=== PATIENT | male | born 1980 | race Caucasian/White ===

== ENCOUNTER 2017-07-07 17:38 | Emergency (ER) | payer MEDICAID ==
[2017-07-07] MEDS ORDERED: KETOROLAC 30 MG/ML VIAL IVP ONE (18:00)
[2017-07-07] MEDS ORDERED: 0.9 % SODIUM CHLORIDE 1,000 ML BAG IV ONE (18:00)
--- NOTE | 2017-07-07 18:06 | Emergency Department Record ---
History of Present Illness - General Chief Complaint: Abdominal Pain Stated Complaint: ABD PAIN Time Seen by Provider: 07/07/17 18:00 Source: Patient Mode of Arrival: Ambulatory Limitations: No limitations - History of Present Illness Initial Comments: 37 yo male presents with 8 months of left sided abdominal pain. The pain is constant. He underwent testing about 8 months ago in [place] and [place] without any answer. The pain is sharp and stays in the LLQ. He reports a normal colonoscopy during the work up. No fever. No bloody stools. Stools are sometimes loose. No dysuria. No surgery history in that area. Lives in [place] and PCP is in [place]. MD Complaint: Abdominal pain Onset/Timin -: Month(s) (8) Location: [facility] Radiation: Other Migration to: [facility] Severity: Moderate Quality: Sharp Consistency: Constant Improves With: Nothing Worsens With: Nothing Associated Symptoms: Denies other symptoms - Related Data Home Medications Medication Instructions Recorded Confirmed Last Taken Bisacodyl [Laxative] 5 mg PO ASDIR 07/07/17 07/07/17 07/07/17 Oxycodone HCl/Acetaminophen 1 tab PO Q6H PRN 07/07/17 07/07/17 07/07/17 [Percocet 5mg/325mg] Trazodone HCl 50 mg PO ASDIR 07/07/17 07/07/17 07/06/17 Venlafaxine HCl [Effexor] 75 mg PO DAILY 07/07/17 07/07/17 07/06/17 Previous Rx's Medication Instructions Recorded Polyethylene Glycol 3350 [Miralax] 1 packet PO DAILY #14 packet 07/07/17 Allergies Allergy/AdvReac Type Severity Reaction Status Date / Time No Known Drug Allergies Allergy Verified 07/07/17 17:48 Travel Screening - Travel/Exposure Within Last 30 Days Have you traveled within the last 30 days?: No Review of Systems Constitutional: Denies: Chills, Fever, Malaise, Weakness Eyes: Denies: Eye discharge, Eye pain, Vision change ENT: Denies: Congestion Respiratory: Denies: Cough, Dyspnea Cardiovascular: Denies: Chest pain, Syncope Endocrine: Denies: Fatigue, Polydipsia, Polyuria Gastrointestinal: Reports: Abdominal pain, Diarrhea (occasionally), Nausea. Denies: Constipation, Hematemesis, Hematochezia, Melena Genitourinary: Denies: Dysuria, Frequency, Hematuria Musculoskeletal: Denies: Arthralgia, Back pain, Myalgia Skin: Denies: Bruising, Change in color, Rash Neurological: Denies: Confusion, Headache, Numbness Psychiatric: Denies: Anxiety Hematological/Lymphatic: Denies: Blood Clots, Easy bleeding, Easy bruising Past Medical History - SOCIAL HISTORY Smoking Status: Current every day smoker Alcohol Use: Occasional Drug Use: Occasional Drug Use Detail:: Cocaine - RESPIRATORY Hx Respiratory Disorders: No - CARDIOVASCULAR Hx Cardio Disorders: No - NEURO Hx Neuro Disorders: No - GI Hx GI Disorders: No - Hx Genitourinary Disorders: No - ENDOCRINE Hx Endocrine Disorders: No - MUSCULOSKELETAL Hx Musculoskeletal Disorders: Yes Comment:: spinal stenosis - PSYCH Hx Psych Problems: Yes Hx Anxiety: Yes Hx Depression: Yes - HEMATOLOGY/ONCOLOGY Hx Hematology/Oncology Disorders: No Family Medical History Any Significant Family History?: No Physical Exam - General General Appearance: Alert, Oriented x3, Cooperative, No acute distress Limitations: No limitations - Head Head exam: Normal inspection - Eye Eye exam: Normal appearance, PERRL. negative: Conjunctival injection, Periorbital swelling - ENT ENT exam: Normal exam, Mucous membranes moist Ear exam: Normal external inspection Nasal Exam: Normal inspection Mouth exam: Normal external inspection - Neck Neck exam: Normal inspection, Full ROM. negative: Tenderness - Respiratory Respiratory exam: Normal lung sounds bilaterally. negative: Respiratory distress - Cardiovascular Cardiovascular Exam: Regular rate, Normal rhythm, Normal heart sounds - GI/Abdominal GI/Abdominal exam: Soft, Normal bowel sounds, Tenderness (mild in LLQ, soft). negative: Distended, Guarding, Hernia, Mass, Organomegaly, Rebound, Rigid - Rectal Rectal exam: Deferred - exam: Deferred - Extremities Extremities exam: Normal inspection, Full ROM, Normal capillary refill. negative: Tenderness - Back Back exam: Reports: Normal inspection, Full ROM. Denies: Muscle spasm, Rash noted, Tenderness - Neurological Neurological exam: Alert, Normal gait, Oriented X3 - Psychiatric Psychiatric exam: Normal affect, Normal mood - Skin Skin exam: Dry, Intact, Normal color, Warm Course Vital Signs 07/07/17 17:44 Temperature 98.9 F Pulse Rate 82 Respiratory 20 Rate Blood Pressure 117/87 Pulse Ox 97 - Reevaluation(s) Reevaluation #1: No prior imaging at [facility] Labs and CT ordered 07/07/17 18:06 Reevaluation #2: No acute changes on the CBC or CMP 07/07/17 19:29 Reevaluation #3: The labs were reviewed No acute changes today f Normal WBC count 07/07/17 20:[address] scan was read as abundant stool otherwise no acute process DC home to follow up with the PCP Medical Decision Making - Lab Data Result diagrams: 07/07/17 18:22 07/07/17 18:15 Disposition Disposition: Discharge Clinical Impression: Abdominal pain Qualifiers: Abdominal location: lower abdomen, unspecified Qualified Code(s): R10.30 - Lower abdominal pain, unspecified Disposition: Home, Self-Care Condition: (1) Good Instructions: Abdominal Pain (ED), Constipation (ED) Additional Instructions: Follow up with your doctor as scheduled Return if you have fever, vomiting or any new concerns Prescriptions: Polyethylene Glycol 3350 [Miralax] 1 packet PO DAILY #14 packet Forms: Patient Portal Access Time of Disposition: 21:06 Quality - Quality Measures Quality Measures: N/A - Blood Pressure Screening Does Patient Have Any of the Following: No Blood Pressure Classification: Pre-Hypertensive BP Reading Systolic Measurement: 117 Diastolic Measurement: 87 Screening for High Blood Pressure: < Pre-Hypertensive BP, F/U Documented > [ G8950] Pre-Hypertensive Follow-up Interventions: Referral to alternative/primary care provider.
[2017-07-07 18:36] LABS: BASO % 0.9 % (0-6); EOS % 6.3 % (0-6); HEMATOCRIT 36.2 % (42.0-52.0); HEMOGLOBIN 12.6 gm/dl (14.0-18.0); LYMPH % 38.1 % (16-45); MEAN CELL VOLUME 91.6 fl (81-97); MEAN CORPUSCULAR HGB CONC 34.8 g/dl (32-36); MEAN PLATELET VOLUME 9.6 fl (7.4-10.4); MONO % 8.7 % (0-9); PLATELET COUNT 313 K/uL (130-400); RED BLOOD COUNT 3.95 M/uL (4.40-5.70); WHITE BLOOD COUNT W/O DIFF 6.7 K/uL (4.2-12.2)
[2017-07-07 18:37] LABS: MEAN CORPUSCULAR HEMOGLOBIN 31.8 pg (27-33)
[2017-07-07 18:50] LABS: ALBUMIN 4.1 gm/dL (3.5-5.0); ALKALINE PHOSPHATASE 61 U/L (38-126); ALT/SGPT 35 U/L (21-72); ANION GAP 8.7 (7-16); AST/SGOT 18 U/L (17-59); BILIRUBIN,TOTAL 0.26 mg/dL (0.2-1.3); BLOOD UREA NITROGEN 13 mg/dL (9-20); CARBON DIOXIDE 27.3 mmol/L (22-30); CREATININE 0.7 mg/dL (0.66-1.25); EST GLOMERULAR FILTRATION RATE > 60 ml/min; GLUCOSE,RANDOM 113 mg/dL (70-110); LIPASE 47 U/L (23-300); TOTAL PROTEIN 6.5 gm/dL (6.3-8.2)
[2017-07-07] MEDS ORDERED: ONDANSETRON HCL IV 4 MG/2 ML VIAL IVP ONE (19:36)
[2017-07-07 19:44] LABS: URINE APPEARANCE CLEAR; URINE BILIRUBIN NEGATIVE (NEGATIVE); URINE BLOOD LARGE (NEGATIVE); URINE COLOR YELLOW; URINE GLUCOSE (UA) NEGATIVE (NEGATIVE); URINE KETONE NEGATIVE (NEGATIVE); URINE LEUKOCYTE ESTERASE NEGATIVE (NEGATIVE); URINE NITRITE NEGATIVE (NEGATIVE); URINE PROTEIN TRACE (NEGATIVE); URINE UROBILINOGEN 0.2 E.U./dL (0.20 - 1.00)
[2017-07-07 19:50] LABS: URINE EPITHELIAL CELLS NONE SEEN (FEW); URINE WBC NONE SEEN (0-2/hpf)
[2017-07-07 19:51] LABS: URINE BACTERIA NONE SEEN
--- NOTE | 2017-07-09 22:43 | CT SCAN REPORT ---
EXAM: CT SCAN ABDOMEN/PELVIS W CONTRAST HISTORY: LEFT-SIDED ABDOMINAL PAIN. TECHNIQUE: CT of the abdomen and pelvis was performed following the IV administration of 100 mL of Omnipaque-300 contrast. Oral contrast also utilized. COMPARISON: Prior CT from 11/30/07. FINDINGS: Limited evaluation of the lung bases is unremarkable. Osseous structures are grossly intact. The liver, spleen, adrenal glands, pancreas, and kidneys are unremarkable. The gallbladder is present. No evidence for bowel obstruction. Abundant stool in the colon. No free air or free fluid. No abdominal or pelvic adenopathy. There is a normal appendix. IMPRESSION: NEGATIVE FOR ACUTE INTRAABDOMINAL/PELVIC PROCESS. JOB NUMBER: [id number] MTDD
== END 2017-07-07 21:19 | disposition home or self-care (01) ==
LOC: ER 17:38
DX: R10.32 Left lower quadrant pain (principal); K59.00 Constipation, unspecified
CPT/HCPCS: 99284 ×2; 96374; 96375; 83690; 85025; 80076; 80048; 81001; 74177; Q9967; J1885; J2405; J7030

== ENCOUNTER 2018-08-06 15:13 | Emergency (ER) | payer MEDICAID ==
--- NOTE | 2018-08-06 16:03 | Emergency Department Record ---
History of Present Illness - General Chief Complaint: Abdominal Pain Stated Complaint: LT SIDE ABDOMINAL PAIN RADIATING TO GROIN Time Seen by Provider: 08/06/18 15:48 Source: Patient, RN notes reviewed Mode of Arrival: Ambulatory - History of Present Illness Initial Comments: abdominal pain left sided lower , and lumbar back pain and he has had chronic back and abdominal pain and he sees in [place] Dr. Renae Workman , [facility] ,[facility]. Works at [employer] and he was hoping for pain control. Pain is in the left lower back and radiates to the left scrotum -: Month(s) Location: [facility] Radiation: LLQ Migration to: LLQ Associated Symptoms: Nausea - Related Data Home Medications Medication Instructions Recorded Confirmed Last Taken Gabapentin [Neurontin] 800 mg PO TID 08/06/18 08/06/18 08/06/18 Ibuprofen [Motrin] 1 tab PO TID 08/06/18 08/06/18 08/06/18 Previous Rx's Medication Instructions Recorded Cyclobenzaprine HCl [Flexeril] 10 mg PO TID #30 tablet 08/06/18 Ibuprofen [Motrin 600Mg] 600 mg PO Q6H #30 tablet 08/06/18 Allergies Allergy/AdvReac Type Severity Reaction Status Date / Time No Known Drug Allergies Allergy Verified 08/06/18 15:27 Travel Screening - Travel/Exposure Within Last 30 Days Have you traveled within the last 30 days?: No - Travel/Exposure Within Last Year Have you traveled outside the [place] in the last year?: No - Additonal Travel Details Have you been exposed to anyone with a communicable illness?: No - Travel Symptoms Symptom Screening: None Past Medical History - SOCIAL HISTORY Smoking Status: Current every day smoker Alcohol Use: None Drug Use: Rare Drug Use Detail:: Marijuana - RESPIRATORY Hx Respiratory Disorders: Yes Hx Asthma: Yes - CARDIOVASCULAR Hx Cardio Disorders: No - NEURO Hx Neuro Disorders: No - GI Hx GI Disorders: No - Hx Genitourinary Disorders: No - ENDOCRINE Hx Endocrine Disorders: No - MUSCULOSKELETAL Hx Musculoskeletal Disorders: Yes Comment:: spinal stenosis - PSYCH Hx Psych Problems: Yes Hx Anxiety: Yes Hx Depression: Yes - HEMATOLOGY/ONCOLOGY Hx Hematology/Oncology Disorders: No Family Medical History Any Significant Family History?: No Course Vital Signs 08/06/18 15:46 Temperature 98.7 F Pulse Rate [ 97 H Pulse Ox Probe] Respiratory 16 Rate Blood Pressure 131/85 [Left Arm] Pulse Ox 96 Medical Decision Making - Data Complexity MDM Data: Labs Ordered and/or Reviewed (rbc in the urine), X-Ray Ordered and/or Reviewed (CT of abd and pelvis neg) - Lab Data Result diagrams: 08/06/18 16:08 08/06/18 16:08 Disposition Clinical Impression: Lumbar strain Qualifiers: Encounter type: initial encounter Qualified Code(s): S39.012A - Strain of muscle, fascia and tendon of lower back, initial encounter Hematuria Qualifiers: Hematuria type: other microscopic Qualified Code(s): R31.29 - Other microscopic hematuria; R31.2 - Other microscopic hematuria Disposition: Home, Self-Care Condition: (1) Good Instructions: Low Back Strain (ED), Hematuria (ED) Additional Instructions: follow up with family Dr in one week follow up with urology in one to two weeks for microscopic hematuria Prescriptions: Cyclobenzaprine HCl [Flexeril] 10 mg PO TID #30 tablet Ibuprofen [Motrin 600Mg] 600 mg PO Q6H #30 tablet Forms: Patient Portal Access Time of Disposition: 17:31 Quality - Quality Measures Quality Measures: N/A - Blood Pressure Screening Does Patient Have Any of the Following: No Blood Pressure Classification: Hypertensive Reading Systolic Measurement: 124 Diastolic Measurement: 90 Screening for High Blood Pressure: < Pre-Hypertensive BP, F/U Documented > [ G8950] Pre-Hypertensive Follow-up Interventions: Referral to alternative/primary care provider.
[2018-08-06 16:16] LABS: BASO % 0.8 % (0-6); EOS % 5.2 % (0-6); GRAN % 52.6 % (47-80); HEMATOCRIT 36.4 % (42.0-52.0); HEMOGLOBIN 12.5 gm/dl (14.0-18.0); LYMPH % 32.9 % (16-45); MEAN CELL VOLUME 91.9 fl (81-97); MEAN CORPUSCULAR HEMOGLOBIN 31.5 pg (27-33); MEAN CORPUSCULAR HGB CONC 34.3 g/dl (32-36); MEAN PLATELET VOLUME 9.1 fl (7.4-10.4); MONO % 8.5 % (0-9); PLATELET COUNT 335 K/uL (130-400); RED BLOOD COUNT 3.96 M/uL (4.40-5.70); RED CELL DISTRIBUTION WIDTH 12.7 % (11.5-14.5); URINE APPEARANCE CLEAR; URINE BILIRUBIN NEGATIVE (NEGATIVE); URINE BLOOD MODERATE (NEGATIVE); URINE COLOR YELLOW; URINE GLUCOSE (UA) NEGATIVE (NEGATIVE); URINE KETONE NEGATIVE (NEGATIVE); URINE LEUKOCYTE ESTERASE NEGATIVE (NEGATIVE); URINE NITRITE NEGATIVE (NEGATIVE); URINE PROTEIN TRACE (NEGATIVE); URINE UROBILINOGEN 0.2 E.U./dL (0.20 - 1.00); WHITE BLOOD COUNT W/O DIFF 10.3 K/uL (4.2-12.2)
[2018-08-06 16:23] LABS: URINE BACTERIA NONE SEEN; URINE EPITHELIAL CELLS NONE SEEN (FEW); URINE RBC 36 - 50 (NONE SEEN); URINE WBC NONE SEEN (0-2/hpf)
[2018-08-06 16:29] LABS: BLOOD UREA NITROGEN 11 mg/dL (6-20); CREATININE 0.8 mg/dL (0.7-1.2); EST GLOMERULAR FILTRATION RATE > 60 mL/min
[2018-08-06 16:32] LABS: GLUCOSE,RANDOM 89 mg/dL (74-109)
[2018-08-06 16:35] LABS: LIPASE 40 U/L (13-60)
[2018-08-06] MEDS ORDERED: CYCLOBENZAPRINE 10MG TABLET PO ONE (17:28)
[2018-08-06] MEDS ORDERED: IBUPROFEN 600 MG TABLET PO ONE (17:28)
== END 2018-08-06 17:40 | disposition home or self-care (01) ==
LOC: ER 15:13
DX: S39.012A Strain of muscle, fascia and tendon of lower back, initial encounter (principal); R31.29 Other microscopic hematuria; R11.0 Nausea; M54.5 Low back pain; R10.32 Left lower quadrant pain; G89.29 Other chronic pain; F17.210 Nicotine dependence, cigarettes, uncomplicated; X58.XXXA Exposure to other specified factors, initial encounter
CPT/HCPCS: 74176; 80048; 81001; 83690; 85025; 99283; 99284